=== PATIENT | male | born 2000 | race Caucasian/White ===

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

== ENCOUNTER 2018-08-21 10:52 | Outpatient (CLI) | payer BC ==
--- NOTE | 2018-08-21 11:46 | ULT ---
SONOGRAM RIGHT UPPER QUADRANT: History: Right upper quadrant pain. FINDINGS: Gallbladder is well distended. No stones visible. Common duct is 0.3 cm. Liver is unremarkable withou t focal mass or intrahepatic biliary dilatation. No free fluid. IMPRESSION: No evidence of gallstones or biliary obstruction. POS: [facility]
== END 2018-08-21 10:53 | disposition home or self-care (01) ==
LOC: BICULT 10:52
PROVIDERS: ATTEND Internal Medicine Gastroenterology
DX: R10.11 Right upper quadrant pain (principal)
CPT/HCPCS: 76705